=== PATIENT | female | born 1965 | race Caucasian/White ===

== ENCOUNTER 2021-02-09 09:57 | Day surgery (SDC) | payer OTHER ==
[2021-02-09] MEDS ORDERED: Sodium Chloride 0.9(Preservative Free) 10 ML IJ ONE (09:58)
[2021-02-09] MEDS ORDERED: Depo-Medrol 40 MG/ML IM ONE (09:58)
[2021-02-09] MEDS ORDERED: VERSED 5 MG/5 ML ONE (11:19)
[2021-02-09] MEDS ORDERED: DIPRIVAN 200 MG/20 ML IV ONE (11:54)
--- NOTE | 2021-02-09 13:25 | XRAY ---
Indication: Right L4-S1 transforaminal ANASTACIA. Intraoperative fluoroscopy provided for 28 seconds. 4 digital spot images submitted for interpretation demonstrate posterior needle tips projecting over the expected right L4 and L5 nerve roots. Small amount of contrast injected for needle tip placement. Correlate with intraoperative findings/report.
[2021-02-09] MEDS ORDERED: Lactated Ringers 1,000 ML IV ONE (15:43)
== END 2021-02-09 12:19 | disposition home or self-care (01) ==
LOC: SDC-PAIN 09:57
PROVIDERS: ATTEND Psychiatry & Neurology Pain Medicine
DX: M54.16 Radiculopathy, lumbar region (principal); F41.9 Anxiety disorder, unspecified; F32.9 Major depressive disorder, single episode, unspecified; G43.909 Migraine, unspecified, not intractable, without status migrainosus; M19.90 Unspecified osteoarthritis, unspecified site; J44.9 Chronic obstructive pulmonary disease, unspecified; F43.10 Post-traumatic stress disorder, unspecified; Z79.899 Other long term (current) drug therapy
CPT/HCPCS: 64483; 64484; 72100; 77003; J1030; J2250; J2704; Q9966

== ENCOUNTER 2021-03-23 12:32 | Day surgery (SDC) | payer OTHER ==
[2021-03-23] MEDS ORDERED: Sodium Chloride 0.9(Preservative Free) 10 ML IJ ONE (12:33)
[2021-03-23] MEDS ORDERED: Depo-Medrol 40 MG/ML IM ONE (12:33)
[2021-03-23] MEDS ORDERED: Versed 2 MG/2 ML Injection ONE (13:32)
[2021-03-23] MEDS ORDERED: DIPRIVAN 200 MG/20 ML IV ONE (14:04)
[2021-03-23] MEDS ORDERED: Zofran 4 MG/2 ML VIAL ONE (14:29)
--- NOTE | 2021-03-23 15:24 | XRAY ---
Indication: Left L4-S1 transforaminal ANASTACIA. Intraoperative fluoroscopy provided for 30 seconds. 2 digital spot images submitted for interpretation demonstrates posterior needle tips projecting over the expected left L4 and L5 nerve roots. Small amount of contrast injected for needle tip placement. Correlate with intraoperative findings/report.
[2021-03-23] MEDS ORDERED: Lactated Ringers 1,000 ML IV ONE (15:56)
--- NOTE | 2021-03-23 16:35 | XRAY ---
30 seconds fluoroscopy time in surgery for left L4- S1 transforaminal ANASTACIA.
== END 2021-03-23 14:35 | disposition home or self-care (01) ==
LOC: SDC-PAIN 12:32
PROVIDERS: ATTEND Psychiatry & Neurology Pain Medicine
DX: M54.16 Radiculopathy, lumbar region (principal); Z79.899 Other long term (current) drug therapy
CPT/HCPCS: 64483; 64484; 72100; 77003; J1030; J2250; J2405; J2704; Q9966

== ENCOUNTER 2021-05-04 14:37 | Day surgery (SDC) | payer OTHER ==
[2021-05-04] MEDS ORDERED: LIDOCAINE HCL 2% 100 MG/5 ML IJ ONE (14:38)
[2021-05-04] MEDS ORDERED: Lactated Ringers 1,000 ML IV ONE (16:41)
[2021-05-04] MEDS ORDERED: DIPRIVAN 200 MG/20 ML IV ONE (16:59)
[2021-05-04] MEDS ORDERED: TORAdol 30 mg Injection ONE (17:39)
--- NOTE | 2021-05-04 20:32 | XRAY ---
Indication: Bilateral L4-S1 MBB. Intraoperative fluoroscopy provided for 8 seconds. Single digital spot image submitted for interpretation demonstrates posterior needle tips projecting over the expected left and right L4-S1 nerve roots. Correlate with intraoperative findings/report.
--- NOTE | 2021-05-04 21:34 | XRAY ---
8 seconds of fluoroscopy was used in surgery for a bilateral L4-S1 MBB.
== END 2021-05-04 17:35 | disposition home or self-care (01) ==
LOC: SDC-PAIN 14:37
PROVIDERS: ATTEND Psychiatry & Neurology Pain Medicine
DX: M47.816 Spondylosis without myelopathy or radiculopathy, lumbar region (principal); Z79.899 Other long term (current) drug therapy
CPT/HCPCS: 64493; 64494; 72020; 77002; J1885; J2704

== ENCOUNTER 2021-06-01 08:51 | Day surgery (SDC) | payer OTHER ==
[2021-06-01] MEDS ORDERED: BUPIVACAINE 0.5% VIAL IJ ONE (08:52)
[2021-06-01] MEDS ORDERED: Versed 2 MG/2 ML Injection ONE (09:55)
[2021-06-01] MEDS ORDERED: DIPRIVAN 200 MG/20 ML IV ONE (10:38)
--- NOTE | 2021-06-01 13:21 | XRAY ---
Indication: Bilateral L4-S1 MBB. Intraoperative fluoroscopy was provided for 12 seconds. Single digital spot image submitted for interpretation demonstrates posterior needle tips projecting over the expected left and right L4-S1 nerve roots. Correlate with intraoperative findings/report.
--- NOTE | 2021-06-01 14:33 | XRAY ---
12 seconds of fluoroscopy was used in surgery for a bilateral L4-S1 MBB.
[2021-06-01] MEDS ORDERED: Lactated Ringers 1,000 ML IV ONE (17:25)
== END 2021-06-01 11:20 | disposition home or self-care (01) ==
LOC: SDC-PAIN 08:51
PROVIDERS: ATTEND Psychiatry & Neurology Pain Medicine
DX: M47.816 Spondylosis without myelopathy or radiculopathy, lumbar region (principal); Z79.899 Other long term (current) drug therapy
CPT/HCPCS: 64493; 64494; 72020; 77002; J2250; J2704

== ENCOUNTER 2021-06-15 06:40 | Day surgery (SDC) | payer OTHER ==
[2021-06-15] MEDS ORDERED: Xylocaine 1% Vial 30 ML PF IJ ONE (06:41)
[2021-06-15] MEDS ORDERED: BUPIVACAINE 0.5% VIAL IJ ONE (06:41)
[2021-06-15] MEDS ORDERED: DIPRIVAN 200 MG/20 ML IV ONE (06:41)
[2021-06-15] MEDS ORDERED: Depo-Medrol 40 MG/ML IM ONE (06:41)
[2021-06-15 09:31] LABS: Specific Gravity 1.004 (1.005-1.025)
--- NOTE | 2021-06-15 09:47 | XRAY ---
Indication: Left L4-S1 RFA. Intraoperative fluoroscopy provided for 32 seconds. 3 digital spot image submitted for interpretation demonstrates posterior needle tips projecting over the expected left L4-S1 nerve roots. Correlate with intraoperative findings/report.
--- NOTE | 2021-06-15 11:22 | XRAY ---
32 seconds fluoroscopy time in surgery for left L4-S1 RFA.
[2021-06-15 13:53] LABS: Amphetamine,Urine NEGATIVE (NEGATIVE); Barbiturate,Urine NEGATIVE (NEGATIVE); Benzodiazepine,Urine NEGATIVE (NEGATIVE); Cocaine,Urine NEGATIVE (NEGATIVE); Methadone,Urine NEGATIVE (NEGATIVE); Opiate,Urine POSITIVE (NEGATIVE); PCP,Urine NEGATIVE (NEGATIVE); THC,Urine NEGATIVE (NEGATIVE)
[2021-06-15 14:02] LABS: CREATININE,URINE RANDOM 27.6 MG/DL
[2021-06-15] MEDS ORDERED: Lactated Ringers 1,000 ML IV ONE (14:45)
== END 2021-06-15 09:02 | disposition home or self-care (01) ==
LOC: SDC-PAIN 06:40
PROVIDERS: ATTEND Psychiatry & Neurology Pain Medicine
DX: M47.816 Spondylosis without myelopathy or radiculopathy, lumbar region (principal); J44.9 Chronic obstructive pulmonary disease, unspecified; R06.81 Apnea, not elsewhere classified; Z79.899 Other long term (current) drug therapy
CPT/HCPCS: 64635; 64636; 72100; 77002; 80307; 81002; 82570; 83986; J1030; J2001; J2704

== ENCOUNTER 2021-06-22 14:38 | Day surgery (SDC) | payer OTHER ==
[2021-06-22] MEDS ORDERED: BUPIVACAINE 0.5% VIAL IJ ONE (14:39)
[2021-06-22] MEDS ORDERED: Xylocaine 1% Vial 30 ML PF IJ ONE (14:39)
[2021-06-22] MEDS ORDERED: Depo-Medrol 40 MG/ML IM ONE (14:39)
[2021-06-22] MEDS ORDERED: DIPRIVAN 200 MG/20 ML IV ONE (16:14)
[2021-06-22] MEDS ORDERED: Lactated Ringers 1,000 ML IV ONE (16:32)
--- NOTE | 2021-06-22 16:59 | XRAY ---
Indication: Right L4-S1 RFA. Intraoperative fluoroscopy provided for 22 seconds. 3 digital spot image submitted for interpretation demonstrates posterior needle tips projecting over the expected right L4-S1 nerve roots. Correlate with intraoperative findings/report.
--- NOTE | 2021-06-22 20:45 | XRAY ---
22 seconds of fluoroscopy was used in surgery for a right L4-S1 RFA.
== END 2021-06-22 16:43 | disposition home or self-care (01) ==
LOC: SDC-PAIN 14:38
PROVIDERS: ATTEND Psychiatry & Neurology Pain Medicine
DX: M47.816 Spondylosis without myelopathy or radiculopathy, lumbar region (principal); Z79.899 Other long term (current) drug therapy
CPT/HCPCS: 64635; 64636; 72100; 77002; J1030; J2001; J2704